=== PATIENT | male | born 1995 | race African-American/Black ===

== ENCOUNTER 2017-07-17 22:12 | Emergency (ER) | payer OTHER ==
[2017-07-17 23:16] VITALS: BP 142/78; PULSE 69; TEMP 98.8; BMI 24.3
[2017-07-18] MEDS ORDERED: ONDANSETRON 4 MG TABLET PO ONE (02:01)
--- NOTE | 2017-07-18 02:01 | PDOC ---
History of Present Illness - General Chief Complaint: Nausea Stated Complaint: NAUSEA Time Seen by Provider: 07/18/17 02:01 History Source: Patient - History of Present Illness Initial Comments: 07/18/17 03:26 21 year old male c/o nausea and vomiting since this morning after eating pashto food. + epigastric pain. denies fever/ chills, diarrhea. Past History - Past Medical History Allergies/Adverse Reactions: Allergies Allergy/AdvReac Type Severity Reaction Status Date / Time No Known Allergies Allergy Verified 09/15/15 22:59 Home Medications: Ambulatory Orders NK [No Known Home Medication] 07/18/17 - Immunization History Immunization Up to Date: Yes - Suicide/Smoking/Psychosocial Hx Smoking History: Never smoked Have you smoked in the past 12 months: No Information on smoking cessation initiated: No Hx Alcohol Use: No Drug/Substance Use Hx: No Review of Systems - Review of Systems Able to Perform ROS?: Yes Is the patient limited Montenegrin proficient: No ABD/GI: Yes: Nausea, Vomiting, Abdominal cramping (epigastric) *Physical Exam - Vital Signs Last Vital Signs Temp Pulse Resp BP Pulse Ox 98.8 F 69 18 142/78 100 07/17/17 23:14 07/17/17 23:14 07/17/17 23:14 07/17/17 23:14 07/17/17 23:14 - Physical Exam General Appearance: Yes: Appropriately Dressed Respiratory/Chest: positive: Lungs Clear, Normal Breath Sounds Cardiovascular: positive: Regular Rhythm, Regular Rate Gastrointestinal/Abdominal: positive: Normal Bowel Sounds, Tender (epigastric area), Soft Progress Note - Progress Note Progress Note: A: gastroenteritis P: zofran po challenge *DC/Admit/Observation/Transfer Diagnosis at time of Disposition: Acute gastroenteritis - Discharge Dispostion Disposition: HOME - Referrals - Patient Instructions Printed Discharge Instructions: Viral Gastroenteritis, Gastroenteritis Diet Additional Instructions: start a bland diet. bananas rice apples toast. drink plenty of fluids. - Post Discharge Activity Forms/Work/School Notes: Back to Work
--- NOTE | 2017-07-18 02:12 | PDOC ---
*Physical Exam - Vital Signs Last Vital Signs Temp Pulse Resp BP Pulse Ox 98.8 F 69 18 142/78 100 07/17/17 23:14 07/17/17 23:14 07/17/17 23:14 07/17/17 23:14 07/17/17 23:14 Medical Decision Making - Medical Decision Making 07/18/17 02:12 agree with care from ROB Bae *DC/Admit/Observation/Transfer Diagnosis at time of Disposition: Acute gastroenteritis - Discharge Dispostion Disposition: HOME - Referrals - Patient Instructions Printed Discharge Instructions: Viral Gastroenteritis, Gastroenteritis Diet Additional Instructions: start a bland diet. bananas rice apples toast. drink plenty of fluids. - Post Discharge Activity Forms/Work/School Notes: Back to Work
[2017-07-18] MEDS ORDERED: ONDANSETRON *ODT* 4 MG TABLET ONE (02:16)
== END 2017-07-18 03:44 | disposition home or self-care (01) ==
LOC: JER 22:12
DX: K52.9 Noninfective gastroenteritis and colitis, unspecified (principal)
CPT/HCPCS: 99282-25